=== PATIENT | female | born 1985 | race Two or more races ===

== ENCOUNTER 2024-04-13 17:38 | Emergency (ER) | payer OTHER ==
[~2024-04-13] VITALS: Ht 165.1 cm; Wt 66.7 kg
[2024-04-13 18:00] LABS: BASOPHILS % (AUTO) 0.3 % (0.0-2.0); EOSINOPHILS % (AUTO) 0.1 % (0.0-7.0); HEMOGLOBIN 14.7 g/dL (10.9-14.3); LYMPHOCYTES # (AUTO) 1.5 K/uL (0.8-4.8); LYMPHOCYTES % (AUTO) 12.3 % (20.5-51.5); MEAN CORPUSCULAR HEMOGLOBIN 29.3 uug (24.7-32.8); MEAN CORPUSCULAR HGB CONC 34 g/dL (32.3-35.6); MEAN CORPUSCULAR VOLUME 85.5 fL (75.5-95.3); MONOCYTES # (AUTO) 0.4 K/uL (0.1-1.30); MONOCYTES % (AUTO) 2.8 % (0.0-11.0); NEUTROPHILS # (AUTO) 10.5 K/uL (1.8-8.9); NEUTROPHILS % (AUTO) 84.5 % (38.5-71.5); PLATELET COUNT (AUTO) 299 K/uL (179-408); RED BLOOD CELL COUNT(AUTO) 5.03 MIL/uL (3.63-4.92); RED CELL DISTRIBUTION WIDTH 12.6 % (12.3-17.7); WHITE BLOOD COUNT (AUTO) 12.5 K/uL (3.8-11.8)
[2024-04-13] MEDS: LIDOCAINE VISCUS 2% 15 ML UDC MM ONE (18:00)
[2024-04-13] MEDS: MAG HYDROX/AL HYDROX/SIMETH 30 ML LIQUID UDC PO ONE (18:00)
[2024-04-13 18:03] LABS: DIFFERENTIAL COMMENT 1
[2024-04-13 18:15] LABS: CALCIUM 9.4 mg/dL (8.5-10.1); CREATININE 0.8 mg/dL (0.6-1.3); POTASSIUM 3.7 mmol/L (3.5-5.1)
[2024-04-13 18:25] LABS: ALBUMIN 4.2 g/dL (3.4-5.0); BILIRUBIN,DIRECT 0.2 mg/dL (0.0-0.2); BILIRUBIN,TOTAL 0.6 mg/dL (0.2-1.0); TOTAL PROTEIN, SERUM 7.7 g/dL (6.4-8.2)
[2024-04-13] MEDS ORDERED: FAMOTIDINE. 20 MG/2 ML VIAL IV ONE (18:45)
[2024-04-13] MEDS ORDERED: MAG HYDROX/AL HYDROX/SIMETH 30 ML LIQUID UDC ONE (18:45)
[2024-04-13] MEDS ORDERED: ONDANSETRON 4 MG/2 ML VIAL ONE ×2 (18:45→19:48)
[2024-04-13] MEDS ORDERED: LIDOCAINE VISCUS 2% 15 ML UDC ONE (18:45)
[2024-04-13] MEDS: FAMOTIDINE. 20 MG/2 ML VIAL IV ONE (18:59)
[2024-04-13] MEDS: IV NORMAL SALINE 1000 ML BAG IV ONE (18:59)
[2024-04-13] MEDS: ONDANSETRON 4 MG/2 ML VIAL IV ONE ×2 (18:59→19:50)
[2024-04-13 19:44] LABS: *BILIRUBIN,URIN NEGATIVE (NEGATIVE); *BLOOD, URINE NEGATIVE (NEGATIVE); *CLARITY,URINE CLEAR (CLEAR); *COLOR,URINE YELLOW (YELLOW); *KETONES,URINE 4+ (NEGATIVE); *PROTEIN,URINE 1+ (NEGATIVE); *URINE HCG, QUAL NEGATIVE (NEGATIVE); *UROBILINOGEN,URINE 0.2 E.U./dl (NORMAL); LEUKOCYTE ESTERASE ,URINE NEGATIVE (NEGATIVE); NITRITE, URINE NEGATIVE (NEGATIVE); PH,URINE 7.5 (5.0-8.0); RBC,URINE 0-3 /HPF (0-3); UGLUCOSE NEGATIVE (NEGATIVE); WBC,URINE 0-3 /HPF (0-3)
[2024-04-13] MEDS ORDERED: FAMO-132 PO (19:46)
[2024-04-13] MEDS ORDERED: ONDA4TAB11 PO (19:46)
[2024-04-13 20:04] VITALS: BP 136/70; TEMP 98.2; O2SAT 99
== END 2024-04-13 20:04 | disposition home or self-care (01) ==
LOC: ER 17:38
DX: R10.9 Unspecified abdominal pain (principal); R11.2 Nausea with vomiting, unspecified; F12.90 Cannabis use, unspecified, uncomplicated
CPT/HCPCS: 99285; 96374; 76705; 96361; 96375; 80076; 80048; 81001; 84703; 83690; 85025; 36415; 96376; J3490; J2405 ×2; J7040; A4606; A4663